=== PATIENT | female | born 1945 | race Hispanic/Latino ===

== ENCOUNTER 2021-03-22 09:50 | Emergency (ER) | payer OTHER ==
[~2021-03-22 09:50] MED LIST: ALPR0.5T8 PO; LEVO500T2 PO; LISI1TAB51 PO; NAPR-1192 PO
[2021-03-22] MEDS ORDERED: DIPHENHYDRAMINE HCL 25 MG CAPSULE ONE (11:30)
[2021-03-22] MEDS ORDERED: HALOPERIDOL LACTATE 5 MG/ML VIAL ONE (11:30)
== END 2021-03-22 12:44 | disposition home or self-care (01) ==
LOC: EDH 09:50
DX: R51.9 Headache, unspecified (principal); I10 Essential (primary) hypertension
CPT/HCPCS: 70450; 96372; 99284; J1630; Q0163

== ENCOUNTER → 2021-05-27 | Outpatient (CLI) | payer OTHER | END | disposition home or self-care (01) | LOC: RAH 09:45 | PROVIDERS: ATTEND Internal Medicine Gastroenterology | DX: R10.11 Right upper quadrant pain (principal) | CPT/HCPCS: 76700 ==

== ENCOUNTER → 2022-06-11 | Outpatient (CLI) | payer OTHER ==
[~2022-06-11] MED LIST changes: +IOHEXOL 350 MG/ML 100ML INFUS..BTL IV ONE
== END | disposition home or self-care (01) ==
LOC: RAH 08:54
PROVIDERS: ATTEND Internal Medicine Gastroenterology
DX: K63.89 Other specified diseases of intestine (principal); R10.9 Unspecified abdominal pain; M47.815 Spondylosis without myelopathy or radiculopathy, thoracolumbar region
CPT/HCPCS: 74178; Q9967

== ENCOUNTER → 2022-06-23 | Outpatient (CLI) | payer OTHER ==
[~2022-06-23] MED LIST changes: -IOHEXOL 350 MG/ML 100ML INFUS..BTL IV ONE
== END | disposition home or self-care (01) ==
LOC: RAH 08:24
PROVIDERS: ATTEND Internal Medicine Gastroenterology
DX: R93.3 Abnormal findings on diagnostic imaging of other parts of digestive tract (principal)
CPT/HCPCS: 76700

== ENCOUNTER → 2022-08-12 | Outpatient (CLI) | payer OTHER | END | disposition home or self-care (01) | LOC: RAH 08:53 | PROVIDERS: ATTEND Internal Medicine Gastroenterology | DX: K44.9 Diaphragmatic hernia without obstruction or gangrene (principal); K21.00 Gastro-esophageal reflux disease with esophagitis, without bleeding; R13.10 Dysphagia, unspecified | CPT/HCPCS: 74240 ==

== ENCOUNTER → 2023-06-22 | Outpatient (CLI) | payer OTHER ==
[~2023-06-22] MED LIST changes: +GADOTERATE MEGLUMINE 10 MMOL/20 ML VIAL IV ONE
== END | disposition home or self-care (01) ==
LOC: RAH 09:11
PROVIDERS: ATTEND Internal Medicine Gastroenterology
DX: K76.89 Other specified diseases of liver (principal); N26.1 Atrophy of kidney (terminal); R93.3 Abnormal findings on diagnostic imaging of other parts of digestive tract; K21.9 Gastro-esophageal reflux disease without esophagitis
CPT/HCPCS: 74183; A9575

== ENCOUNTER → 2023-11-10 | Outpatient (CLI) | payer OTHER ==
[~2023-11-10] MED LIST changes: -GADOTERATE MEGLUMINE 10 MMOL/20 ML VIAL IV ONE
== END | disposition home or self-care (01) ==
LOC: RAH 11:18
PROVIDERS: ATTEND Family Medicine
DX: G31.9 Degenerative disease of nervous system, unspecified (principal); R51.9 Headache, unspecified
CPT/HCPCS: 70450

== ENCOUNTER → 2024-09-19 | Outpatient (CLI) | payer OTHER ==
--- NOTE | 2024-09-19 13:34 | HMCIMG ---
CT ABDOMEN/PELVIS W/O CONTRAST REASON: LOWER ABD PAIN COMPARISON: 06/11/2022 FINDINGS: Lung bases are clear. There are no focal liver lesions. Right kidney is partially atrophic, left kidney appears normal, these findings are unchanged.. Spleen and pancreas appear unremarkable. The gallbladder appears normal as well. There is mild sigmoid diverticulosis without evidence of diverticulitis. Bowel loops appear otherwise unremarkable. This includes normal appearance of the appendix There is no evidence of free fluid or intraperitoneal air. There are no focal fluid collections. Aorta and retroperitoneum appear normal as do pelvic soft tissue structures. The anterior abdominal wall is intact. Osseous structures appear unremarkable. IMPRESSION: 1. Mild sigmoid diverticulosis without evidence of the to colitis. 2. Partially atrophic right kidney stable compared to previous exam 06/11/2022 3. No acute finding in the abdomen or pelvis. CT was performed with one or more following dose reduction techniques: automated exposure control, adjustment of the mA and kv according to patient's size, or use of a iterative reconstruction technique.
== END | disposition home or self-care (01) ==
LOC: RAH 10:53
PROVIDERS: ATTEND Internal Medicine Gastroenterology
DX: K57.30 Diverticulosis of large intestine without perforation or abscess without bleeding (principal); N26.1 Atrophy of kidney (terminal)
CPT/HCPCS: 74176

== ENCOUNTER 2024-10-15 12:48 | Emergency (ER) | payer OTHER ==
[~2024-10-15] VITALS: Ht 152.4 cm; Wt 68.5 kg
--- NOTE | 2024-10-15 12:54 | ERN ---
ED Note History of Present Illness Stated Complaint: FLU SYMPTOMS Chief Complaint: Flu Symptoms Time Seen by MD: 12:49 Dictation: PATIENT IS A 79-YEAR-OLD FEMALE COMING IN TODAY WITH FLU-LIKE SYMPTOMS TO INCLUDE GENERALIZED BODY ACHES CLEAR RUNNY NOSE DRY COUGH AND MILD SHORTNESS BREATH FOR 2-4 DAYS. NO NAUSEA VOMITING NO LOSS OF TASTE OR SMELL NO FEVER AT THIS TIME. SHE STATES SHE SAW HER PRIMARY CARE DOCTOR THREE DAYS AGO AND WAS DIAGNOSED WITH SOME VIRAL INFECTION GIVEN MEDICATIONS HOWEVER SHE IS NOT ABLE TO RECALL WHAT THEY WERE. SHE WAS NOT PROVIDED ANYTHING TO HELP HER WITH HER BREATHING OR COUGH. NO CHEST PAIN NO BACK PAIN Allergies: Coded Allergies: No Known Drug Allergies (Verified Allergy, Unknown, 11/12/14) Home Meds Active Scripts Methylprednisolone (Medrol) 4 Mg Tab.ds.pk, 1 TAB PO AD for 6 Days, #21 TAB 0 Refills 6 on day 1 then reduce by one tablet daily until gone Prov:PAM MARTINEZ NP 10/15/24 Albuterol Sulfate (Ventolin Hfa/Proventil Hfa/Proair Hfa) 90 Mcg Puff, 2 PUFF IH Q4H for WHEEZING, #1 INHALER 0 Refills Prov:PAM MARTINEZ NP 10/15/24 Levofloxacin (Levaquin) 500 Mg Tablet, 500 MG PO DAILY, #10 TAB Prov:JERRY DURHAM MD 11/14/14 Reported Medications Naproxen (Naproxen) 375 Mg Tablet, 375 MG PO BID, TAB 11/12/14 Alprazolam (Alprazolam) 0.5 Mg Tablet, 0.5 MG PO DAILY PRN for ANXIETY, TAB 11/12/14 Lisinopril/Hydrochlorothiazide (Lisinopril-Hctz 20-12.5 mg Tab) 1 Each Tablet, 1 TAB PO DAILY, TAB 11/12/14 Past Medical History Past Medical History: Hypertension Surgical History: None PSYCH History: no pertinent psych hx History: Not Applicable RN Note Reviewed/Agreed w/PFSH: Yes Review of System Dictation CONSTITUTIONAL: NEGATIVE EXCEPT FOR HPI FEVER HEAD/FACE: NEGATIVE EXCEPT FOR HPI EENT: NEGATIVE EXCEPT FOR HPI CLEAR RHINITIS WITH SORE THROAT RESPIRATORY: NEGATIVE EXCEPT FOR HPI DRY COUGH WITH MILD SOB. GASTROINTESTINAL/ABDOMINAL: NEGATIVE EXCEPT FOR HPI GENITOURINARY: NEGATIVE EXCEPT FOR HPI MUSCULOSKELETAL: NEGATIVE EXCEPT FOR HPI INTEGUMENTARY: NEGATIVE EXCEPT FOR HPI NEUROLOGICAL/PSYCH: NEGATIVE EXCEPT FOR HPI HEMATOLOGIC/LYMPHATIC: NEGATIVE EXCEPT FOR HPI ALL SYSTEMS NEGATIVE, EXCEPT NOTED ABOVE. 13 POINT REVIEW OF SYSTEMS ASSESSED AND ALL NEGATIVE EXCEPT FOR ABOVE. Initial Vital Sign VS Vital Signs Date Time Temp Pulse Resp B/P (MAP) Pulse Ox O2 Delivery O2 Flow Rate FiO2 10/15/24 12:49 98.4 92 20 125/93 99 Room Air 0 10/15/24 14:42 21 Physical Exam Dictation VITAL SIGNS REVIEWED PATIENT IS SATTING 98% ON ROOM AIR IN TRIAGE ROOM. GENERAL APPEARANCE: ALERT, ORIENTED X 3, N MILD ACUTE DISTRESS, WELL DEVELOPED, NOURISHED. HEAD AND FACE: NON-TRAUMATIC. EYES: PERRL, PINK CONJUNCTIVAS, EYELID NO TRAUMA, ANTERIOR CHAMBER WITH ARCUS SENILIS. EARS: PINNAS INTACT AND NO SIGNS OF TRAUMA OR ERYTHEMA EAR CANALS CLEAR AND NO DISCHARGE TM NO ERYTHEMA NOSE: CLEAR DISCHARGE, NO BLEEDING. OROPHARYNX: MOUTH NORMAL, TONGUE PINK, PHARYNX CLEAR MILD PHARYNGEAL ERYTHEMA, TONSILS NO EXUDATES, NO ABSCESSES NOTED, MUCOUS MEMBRANE MOIST UVULA MIDLINE, VOICE IS CLEAR, MILD SOME TONSILLAR LYMPHADENOPATHY NECK: SUPPLE, NON-TENDER, NO THYROMEGALY, NO MASSES, NO JVD, NO BRUITS BREAST:DEFERRED CHEST:NO TENDERNESS, NO CREPITUS, NO PARADOXICAL MOVEMENT, NO RETRACTIONS LUNGS:CLEAR, WELL-VENTILATED, SYMMETRIC, NO RALES, NO WHEEZING, NO RHONCHI, NO STRIDOR, GOOD BREATH SOUNDS BILATERALLY NO TACHYPNEA NO RETRACTIONS HEART: REGULAR RATE, REGULAR RHYTHM, NO MURMUR, NO GALLOPS VASCULAR: NO PERIPHERAL EDEMA, ABDOMEN: SOFT, POSITIVE BOWEL SOUNDS, NONDISTENDED, NO GUARDING, NONTENDER, NO REBOUND, NO MASSES NO HEPATOMEGALY, NO SPLENOMEGALY, NO WEINSTEIN'S SIGN, NO HERNIAS. RECTAL: DEFERRED GENITAL: DEFERRED NEUROLOGICAL: NORMAL SPEECH, MOTOR FUNCTION INTACT, SENSORY FUNCTION INTACT MUSCULOSKELETAL: NECK NONTENDER, FULL RANGE OF MOTION, BACK NONTENDER, FULL RANGE OF MOTION, EXTREMITIES: NONTENDER, FULL RANGE OF MOTION SKIN: COLOR PINK, DRY, NO TURGOR, NO RASH, NO LACERATIONS, NO ABRASIONS, NO CONTUSIONS. LYMPHATIC: DEFERRED Results (Laboratory/Radiology) Laboratory/Radiology Laboratory Tests Test 10/15/24 12:54 Influenza Type A Antigen Negative For Type A Influenza Type B Antigen Negative For Type B SARS-CoV-2 Antigen (Rapid) PRESUMPTIVE NEGATIVE Group A Streptococcus Rapid negative (NEGATIVE) Clinical Information: SHORTNESS A BREATH 3-4 DAYS. Comparison: None Findings: The lungs are clear. The heart is normal in size. There is tortuosity of the aorta which artifactually enlarges the mediastinum. No actual mediastinal pathology is detected. IMPRESSION: Tortuous aorta. Clear lungs. Labs Reviewed?: Yes ED Course ED Course Orders Procedure Category Date Status Time Covid19 (Sars Antigen LAB 10/15/24 Complete Rapid) 12:49 Rapid (Group A Strep) LAB 10/15/24 Complete 12:49 Influenza Type A & B, LAB 10/15/24 Complete Rapid 12:49 Chest 1vw RAD 10/15/24 Resulted 12:49 Dexamethasone 4mg/Ml PHA 10/15/24 Complete 1ml Vial (Dexametha 13:00 Albuterol 0.083% PHA 10/15/24 Complete 2.5mg/3ml (Proventil 13:00 Acetaminophen 500mg PHA 10/15/24 Complete Tab (Tylenol 500mg T 13:00 Current Medications Medications (Trade) Dose Ordered Sig/Maurisio Route PRN Reason Start Time Stop Time Status Last Admin Dose Admin Acetaminophen (TYLenol 500MG TAB) 1,000 mg ONCE ONCE PO 10/15/24 13:00 10/15/24 13:01 DC 10/15/24 14:29 Albuterol Sulfate (Proventil 0.083% 2.5mg/3ml) 5 mg ONCE ONCE IH 10/15/24 13:00 10/15/24 13:01 DC 10/15/24 14:05 Dexamethasone Sodium Phosphate (dexaMETHasone 4MG/ML 1ML VIAL) 8 mg ONCE ONCE IM 10/15/24 13:00 10/15/24 13:01 DC 10/15/24 14:30 Vital Signs Date Time Temp Pulse Resp B/P (MAP) Pulse Ox O2 Delivery O2 Flow Rate FiO2 10/15/24 14:42 98.4 90 14 164/81 97 Room Air* 0 21 10/15/24 14:00 96 18 10/15/24 12:49 98.4 92 20 125/93 99 Room Air 0 1432, PATIENT STATES SHE FEELS MARKEDLY IMPROVED AFTER DECADRON AND ALBUTEROL. DISCHARGED HOME WITH INSTRUCTIONS TO CONTINUE HER TAMIFLU FROM HER DOCTOR VISIT THREE DAYS AGO WE WILL BE GIVEN MEDROL DOSEPAK WELL ALBUTEROL Medical Decision Making MDM MEDICAL DISCHARGE MAKING BASED ON CHEST X-RAY, SWABS FOR FLU COVID AND STREP. PATIENT GIVEN ALBUTEROL INHALER AND DECADRON8 MG IM WHILE IN EMERGENCY ROOM. SHE STATES SHE FEELS MARKEDLY IMPROVED RESPIRATIONS UNLABORED 98 99% ON ROOM AIR TOLD TO CONTINUE TAMIFLU FROM HER VISIT THREE DAYS AGO SINCE WE DO NOT HAVE THOSE RECORDS AND WE WILL BE GIVEN ALBUTEROL AND MEDROL DOSEPAK. DX & DISP Disposition: Discharge Departure Impression: Primary Impression: Dyspnea on exertion Additional Impressions: History of influenza, Cough Condition: Stable Scripts Methylprednisolone (Medrol) 4 Mg Tab.ds.pk 1 TAB PO AD for 6 Days, #21 TAB 0 Refills 6 on day 1 then reduce by one tablet daily until gone Prov: PAM MARTINEZ NP 10/15/24 Albuterol Sulfate (Ventolin Hfa/Proventil Hfa/Proair Hfa) 90 Mcg Puff 2 PUFF IH Q4H for WHEEZING, #1 INHALER 0 Refills Prov: PAM MARTINEZ NP 10/15/24 Additional Instructions: FOLLOW-UP WITH PRIMARY CARE PROVIDER IN 1 TO 2 DAYS. TAKE MEDICATIONS DIRECTED HERE IN THE EMERGENCY ROOM. OKAY TO CONTINUE HOME MEDICATIONS UNLESS OTHERWISE DISCUSSED DURING YOUR VISIT IN THE EMERGENCY ROOM TODAY. RETURN TO YOUR NEAREST EMERGENCY ROOM IF SYMPTOMS WORSEN OR IF THERE IS NO IMPROVEMENT. CALL 911 IF YOU NEED IMMEDIATE ASSISTANCE. TAKE TYLENOL OR MOTRIN [id number] NEEDED AND IF NO CONTRAINDICATIONS ARE PRESENT. INCREASE ORAL HYDRATION. A WOUND CULTURE OR URINE CULTURE WAS ORDERED HERE IN THE EMERGENCY ROOM DEPARTMENT PLEASE FOLLOW-UP WITH PRIMARY CARE PROVIDER AND ADVISE THEM TO GET REPEAT PORTS FROM OUR FACILITY. IF YOU HAD ANY LINETTE WRAP/SPLINTS THAT WERE APPLIED HERE, PLEASE DO NOT REMOVE THEM UNTIL YOU SEE YOUR PRIMARY CARE OR SPECIALTY. USE ALBUTEROL INHALER EVERY4 HOURS WHILE AWAKE FOR THE NEXT THREE DAYS., TAKE MEDROL DOSEPAK DIRECTED UNTIL GONE. CONTINUE ALL MEDICATIONS FROM YOUR DOCTOR UNTIL THEY ARE GONE AND SEE HIM FOR FOLLOW UP IN 1-2 DAYS. Referrals: MICHELLE LAY M.D. (PCP) Time of Disposition: 14:35 I have reviewed the case, and I agree with, Diagnosis and Plan ATTESTATION BY PHYSICIAN I PERFORMED THE SUBSTANTIVE PORTION OF THE VISIT. I HAVE REVIEWED AND PERSONALLY MADE AND APPROVED THE MANAGEMENT PLAN THAT IS DOCUMENTED IN THE NOTE BY MYSELF FOR THE A PP. I ACKNOWLEDGED FOR RESPONSIBILITY FOR THE PATIENT'S MANAGEMENT PLAN. PAM MARTINEZ NP Oct 15, 2024 12:54 TRAVIS HELLER MD Oct 18, 2024 08:10
[2024-10-15 13:14] LABS: RAPID GROUP A STREP negative (NEGATIVE)
[2024-10-15 13:24] LABS: COVID19 (SARS ANTIGEN RAPID) PRESUMPTIVE NEGATIVE (NEGATIVE)
[2024-10-15 13:25] LABS: INFLUENZA TYPE A Negative For Type A (NEGATIVE); INFLUENZA TYPE B Negative For Type B (NEGATIVE)
[2024-10-15 14:00] VITALS: PULSE 96; RESP 18
--- NOTE | 2024-10-15 14:04 | HMCIMG ---
Exam Type: CHEST 1VW Clinical Information: SHORTNESS A BREATH 3-4 DAYS. Comparison: None Findings: The lungs are clear. The heart is normal in size. There is tortuosity of the aorta which artifactually enlarges the mediastinum. No actual mediastinal pathology is detected. IMPRESSION: Tortuous aorta. Clear lungs.
[2024-10-15] MEDS: ALBUTEROL 0.083% 2.5 MG/3 ML INH IH ONE (14:05)
[2024-10-15] MEDS: acetaMINOPHEN 500 MG TABLET PO ONE (14:29)
[2024-10-15] MEDS: dexaMETHasone SOD PHOSPHATE 4 MG/ML 1ML VIAL IM ONE (14:30)
[2024-10-15] MEDS ORDERED: METH4TAB3 PO (14:36)
[2024-10-15] MEDS ORDERED: ALBUHFA IH (14:36)
[2024-10-15 14:42] VITALS: BP 164/81; PULSE 90; RESP 14; TEMP 98.4; O2SAT 97
== END 2024-10-15 14:46 | disposition home or self-care (01) ==
LOC: EDH 12:48
DX: R06.09 Other forms of dyspnea (principal); R05.9 Cough, unspecified; I10 Essential (primary) hypertension; Z79.899 Other long term (current) drug therapy; Z20.822 Contact with and (suspected) exposure to COVID-19
CPT/HCPCS: 99284; 71045; 87426; 87880; 87804 ×2; 96372; 94640; J1100

== ENCOUNTER → 2024-11-05 | Outpatient (CLI) | payer OTHER ==
[~2024-11-05] MED LIST changes: +ALBUHFA IH; +METH4TAB3 PO
[2024-11-05] MEDS: REGADENOSON 0.4 MG/5 ML PF SYG IVP ONE (15:43)
--- NOTE | 2024-11-07 18:02 | HMCSR ---
APPROVED REPORT Height: 5 ft 0in Weight: 155 lbs TEST INDICATIONS OTHER FORM OF DYSPNEA The imaging protocol used to acquire images was Rest Tc-99m/stress Tc-99m 1 day Consent: The procedure was explained and understood by the patient. Informerd consent was witnessed Mary Jane DALTON RN First, low dose rest was performed then high dose stress. RESTING DATA: The resting ekg shows: NSR Rest SPECT myocardial perfusion imaging was performed in supine position 101 minutes following the in travenous injection of 11.0 mCi of Tc-99 Sestamibi. Time of rest injection: 09 Date: 11/05/2024 Time of rest imagin Date: 11/05/2024 PHARMACOLOGIC STRESS: Pharmacologic stress test was performed by injecting regadenoson 0.4 mg IV push followed by the intra venous injection of 32.5 mCi of Tc-99 Sestamibi. Time of stress injection: 1117 Date: 11/05/2024 Time of stress imagin Date: 11/05/2024 Heart Rate at time of stress injection: 74 bpm. Gated Stress SPECT was performed 85 minutes after stress injection. The images were gated to evaluate regional wall motion and calculate left ventricular ejection fracti on. STRESS DETAILS Reason for Termination: Infusion complete Stress Symptoms: Dyspnea Max HR Achieved: 100 bpm % of APMHR Achieved: 70 Max Blood Pressure: 161/76 mmHg Stress ECG: NSR Study quality was good. Lung uptake was Normal. Artifact: No artifact LEFT VENTRICLE Size: The left ventricular size is normal. Systolic Function:The left ventricular systolic function is normal. Wall Motion: No regional wall motion abnormalities noted. The left ventricular ejection fraction was calculated to be 60%.TID = . LV PERFUSION The rest and stress images show normal perfusion. RV Size/Shape Normal RV Conclusion The left ventricular ejection fraction was calculated to be 60%. The rest and stress images show normal perfusion. Low risk.
== END | disposition home or self-care (01) ==
LOC: SHCH 08:45
PROVIDERS: ATTEND Internal Medicine Cardiovascular Disease
DX: R06.09 Other forms of dyspnea (principal); F41.9 Anxiety disorder, unspecified
CPT/HCPCS: 78452; 93017; J2785; A9500 ×2

== ENCOUNTER → 2024-11-27 | Outpatient (CLI) | payer OTHER ==
--- NOTE | 2024-12-04 23:35 | HMCSR ---
APPROVED REPORT EXAM: Two-dimensional and M-mode echocardiogram with Doppler and color Doppler. INDICATION ICD: R60.9 Edema, unspecified 2D Dimensions RVDd3.0 cmLVEF(%)57.7 (>50%)LVED Vol(simp.)91.0 mL IVSd1.2 (0.7-1.1cm)FS(%)30 %LVES Vol(simp.)35.0 mL LVDd4.3 (3.8-5.6cm)Ao Root(2D)2.7 (2.0-3.7cm)LVEF(%, simp.)61 % PWd1.2 (0.7-1.1cm)LVOT diam2.0 (1.8-2.4cm)LA ESV INDEX (BP)26.37 mL/m2 LVDs3.0 (2.5-4.0cm)IVC diam1.3 cm Aortic Valve AoV Vmax1.6 m/Adriel Peak GR10.8 mmHgLVOT Vmax1.2 m/s AoV VTI0.4 mAo Mean GR5.9 mmHgLVOT VTI0.27 m JOSHUA (VMAX)2.1 cm2Al P1/2T959 msAVA (VTI) 2.1 cm2 Mitral Valve MV E Vmax63.5 cm/sDECEL Ytjg890 ms MV A Rcdz731.0 cm/sP 1/2 T69 ms E/A ratio0.6MVA (PHT)3.2 cm2 MR Max PG89 mmHg TDI E/E' Ekraqk34.8E/E' Arhzajk58.8 Pulmonary Valve PV Vmax0.9 m/sPV VTI0.24 mPV Mean GR2 mmHg PV Peak GR3.5 mmHgPI End Marielena. Sheldon 0.9 cm/s Tricuspid Valve TR Vmax2.8 m/sRAP (EST) 3 haJoNXDI53.4 mmHg TR Peak GR31.4 mmHg Left Ventricle The left ventricle structure and function is normal. There is normal LV segmental wall motion. There is mild concentric left ventricular hypertrophy. LVEF is 55-60%. Indeterminate diastolic dysfunction. Right Ventricle The right ventricle is normal size. The right ventricular systolic function is normal. Atria The left atrium size is normal. The right atrium size is normal. Aortic Valve Aortic valve is trileaflet. Aortic valve leaflets are sclerotic but open well. Mild aortic regurgitat ion. There is no aortic valvular stenosis. Mitral Valve Mitral valve leaflets are mildly sclerotic but open well. Mitral regurgitation is trace to mild. Ther e is no mitral valve stenosis. Tricuspid Valve The tricuspid valve leaflets appear normal. There is mild tricuspid regurgitation. Right ventricular systolic pressure is estimated at 30-40 mmHg. Pulmonic Valve Pulmonic valve is not well visualized. There is trace pulmonic valvular regurgitation. Great Vessels The aortic root is normal in size. The IVC is normal in size and collapses >50% with inspiration. Pericardium No pericardial effusion. Conclusion LVEF is 55-60%.
== END | disposition home or self-care (01) ==
LOC: SHCH 13:50
PROVIDERS: ATTEND Internal Medicine Cardiovascular Disease
DX: I08.3 Combined rheumatic disorders of mitral, aortic and tricuspid valves (principal); R60.9 Edema, unspecified
CPT/HCPCS: 93306

== ENCOUNTER → 2024-12-18 | Outpatient (CLI) | payer OTHER ==
--- NOTE | 2024-12-21 09:56 | HMCSR ---
APPROVED REPORT Indications Edema Renal Artery Doppler Origin (R) 82.7/16.9 cm/secOrigin (L) 91.1/23.1 cm/sec Proximal (R) 91.1/30.4 cm/secProximal (L) 76.6/24.6 cm/sec Mid (R) 76.6/24.6 cm/secMid (L) 96.9/31.8 cm/sec Distal (R) 101.2/28.9 cm/secDistal (L) 77.1/18.8 cm/sec Renal/Aorta Ratio (R) 1.63Renal Aorta Ratio (L) 1.56 Resistive Index (R) 0.64Resistive Index (L) 0.72 Segmental A. (R) 29.6/10.6 cm/secLt. Segmental A. (L) 27.0/7.6 cm/sec Renal Measurements Kidney Size (R) 9.0x3.6x4.8 cmKidney Size (L)9.4x5.4x4.9 cm Aortic Doppler VelocityWaveform Proximal Aorta 62.0 cm/sec Technologist Impression Based on the renal/aortic ratio there is no evidence of significant stenosis in the LT. or RT. renal arteries. Both kidneys appear to be within normal size parameters (greater than 9.0cm and symmetrical). for pts . age. Conclusion Based on the renal/aortic ratio there is no evidence of significant stenosis in the LT. or RT. renal arteries. Conclusion Based on the renal/aortic ratio there is no evidence of significant stenosis in the LT. or RT. renal arteries.
--- NOTE | 2024-12-21 09:59 | HMCSR ---
APPROVED REPORT Bilateral Lower Extremity Venous Study for DVT., Venous Competence. Indications Edema Vein Imaging CFV (R): Normal flow, augmentation and compression. No evidence of DVT. 10.6mm 1728ms of reflux. SFJ (R): Normal flow, augmentation and compression. No evidence of DVT. FEM (R): Normal flow, augmentation and compression. No evidence of DVT. POP (R): Normal flow, augmentation and compression. No evidence of DVT. DFV (R): Normal flow, augmentation and compression. No evidence of DVT. PTV (R): Normal flow, augmentation and compression. No evidence of DVT. Peroneals (R): Normal flow, augmentation and compression. No evidence of DVT. CFV (L): Normal flow, augmentation and compression. No evidence of DVT. 12.2mm 1567ms of reflux. SFJ (L): Normal flow, augmentation and compression. No evidence of DVT. FEM (L): Normal flow, augmentation and compression. No evidence of DVT. POP (L): Normal flow, augmentation and compression. No evidence of DVT. DFV (L): Normal flow, augmentation and compression. No evidence of DVT. PTV (L): Normal flow, augmentation and compression. No evidence of DVT. Peroneals (L): Normal flow, augmentation and compression. No evidence of DVT. Technologist Impression Deep veins of bilateral lower extremities appear patent and compressible without thrombus. Deep Vein reflux seen in RCFV and LCFV LT. Anterior accessory vein appears dilated and partially thrombosed. Superficial venous insufficiency seen in the RGSV and LGSV and LSSV. RGSV Junction 4.9mm 3842ms thigh 3.0mm 0.0ms knee 2.7mm 394ms calf 2.3mm 0.0ms RSSV Prox 3.6mm 0.0ms Mid 2.1mm 0.0ms LGSV junction 6.1mm 444ms (Anterior accessory 13.0mm dilated and thrombosed.) thigh 2.1mm 0.0ms (Anterior accessory runs laterally and partially thrombosed.) knee 2.4mm 0.0ms calf 2.1mm 2939ms LSSV Prox 2.2mm 0.0ms Mid 3.0mm 1450ms Conclusion There is reflux at the right Saphenofemoral Junction and also in the left calf in Greater and Small S aphenous veins. Conclusion There is reflux at the right Saphenofemoral Junction and also in the left calf in Greater and Small S aphenous veins.
== END | disposition home or self-care (01) ==
LOC: SHCH 08:07
PROVIDERS: ATTEND Internal Medicine Cardiovascular Disease
DX: I87.2 Venous insufficiency (chronic) (peripheral) (principal); N26.1 Atrophy of kidney (terminal); R60.9 Edema, unspecified
CPT/HCPCS: 93970; 93975